=== PATIENT | female | born 1940 | race Caucasian/White ===

== ENCOUNTER 2019-10-20 18:54 | Inpatient (IN) ==
[2019-10-20 20:17] LABS: Basophils # 0.1 10*3/uL (0.0-0.2); Basophils % 0.4 % (0.0-0.8); Eosinophils # 0.1 10*3/uL (0.0-0.87); Eosinophils % 0.4 % (0.00-10.9); Hematocrit 38.5 VOL% (35.7-47.0); Hemoglobin 12.5 GM/DL (12.0-16.0); Immature Granulocytes % 0.4 %; Immature Granulocytes Absolute 0.06 #; Lymphocytes # 0.9 10*3/uL (1.4-4.0); Lymphocytes % 6.3 % (21.3-54.2); Mean Corpuscular HGB Conc 32.5 GM/DL (32-36); Mean Corpuscular Volume 97.2 FL (87-102); Mean Platelet Volume 10.1 FL (9.6-12.0); Monocytes % 3.7 % (1.7-12.7); Neutrophils % 88.8 % (38.7-73.9); Platelet Count 387 T/CUMM (130-400); Red Blood Count 3.96 MC/CUMM (3.8-5.5); Red Cell Distribution Width 12.2 % (9.3-17.3); White Blood Count 14.2 T/CUMM (4-12)
[2019-10-20 20:37] LABS: Albumin 3.4 G/DL (3.4-5.0); Bilirubin,Total 0.9 MG/DL (0.2-1.0); Osmolality,Calculated 280.5 MOS/KG (273-304); Total Protein 7.9 G/DL (6.4-8.3)
[2019-10-20 20:38] LABS: Apearance,Urine CLEAR (Clear); Bilirubin,Urine Negative (Negative); Blood, Urine Negative (Negative); Glucose,Urine (UA) Negative (Negative); Ketones,Urine 20 mg/dL (Negative); Mucus,Urine Occasional /LPF (Occasional); Nitrite,Urine Negative (Negative); Protein,Urine 30 MG/DL; RBC,Urine 2 /HPF (0-4); Squamous Epithelial Cell,Urine Occasional /HPF (0-10); Urine Color Yellow (Yellow); Urine Urobilinogen < 2.0 EU/DL (0.2-1.0); WBC,Urine 1 /HPF (0-6)
[2019-10-20] MEDS ORDERED: PIPERACILLIN/TAZOBACTAM 3,375 MG in SODIUM CHLORIDE 0.9% 100 ML IV STA ×2 (21:17→21:40)
[2019-10-20] MEDS: LACTATED RINGERS 1,000 ML IV SCH (21:49)
[2019-10-20] MEDS ORDERED: ALBUMIN 5% 12.5 GM/250 ML VIAL IV ONE (23:08)
[2019-10-20] MEDS ORDERED: ACETAMINOPHEN 325 MG TABLET PO PRN (23:39)
[2019-10-20] MEDS ORDERED: ONDANSETRON 4 MG/2 ML VIAL IV PRN ×2 (23:39)
[2019-10-21] MEDS: LACTATED RINGERS 1,000 ML IV SCH ×5 (00:05→18:27)
[2019-10-21 00:07] LABS: Apearance,Urine CLEAR (Clear); Bacteria,Urine Occasional /HPF (Few); Bilirubin,Urine Negative (Negative); Blood, Urine Negative (Negative); Glucose,Urine (UA) Negative (Negative); Hyaline Casts,Urine 13 /LPF (0-3); Ketones,Urine 5 mg/dL (Negative); Mucus,Urine Occasional /LPF (Occasional); Nitrite,Urine Negative (Negative); Protein,Urine 30 MG/DL; RBC,Urine 4 /HPF (0-4); Squamous Epithelial Cell,Urine Occasional /HPF (0-10); Urine Color Yellow (Yellow); Urine Specific Gravity > 1.060 (1.001-1.035); Urine Urobilinogen < 2.0 EU/DL (0.2-1.0); WBC,Urine 1 /HPF (0-6)
[2019-10-21] MEDS: MORPHINE 4 MG/1 ML VIAL IV PRN ×3 (00:08→07:59)
[2019-10-21] MEDS ORDERED: fentaNYL 100 MCG/2 ML VIAL ONE (00:09)
[2019-10-21] MEDS ORDERED: LIDOCAINE 2% 5 ML VIAL ONE (00:09)
[2019-10-21] MEDS ORDERED: ALBUMIN 5% 12.5 GM/250 ML VIAL IV ONE (00:09)
[2019-10-21] MEDS ORDERED: PROPOFOL 200 MG/20 ML VIAL IV ONE (00:09)
[2019-10-21] MEDS ORDERED: SUCCINYLCHOLINE 200 MG/10 ML VIAL ONE (00:10)
[2019-10-21] MEDS ORDERED: ROCURONIUM 100 MG/10 ML VIAL IV ONE (00:10)
[2019-10-21] MEDS ORDERED: ONDANSETRON 4 MG/2 ML VIAL ONE (00:10)
[2019-10-21] MEDS ORDERED: PHENYLEPHRINE 1 MG/10 ML SYRINGE IV ONE (00:10)
[2019-10-21] MEDS ORDERED: ESMOLOL 100 MG/10 ML VIAL IV ONE (00:10)
[2019-10-21] MEDS ORDERED: MIDAZOLAM 2 MG/2 ML VIAL ONE (00:10)
[2019-10-21] MEDS ORDERED: GLYCOPYRROLATE 0.4 MG/2 ML VIAL ONE (00:11)
[2019-10-21] MEDS ORDERED: SEVOFLURANE 1 UNIT/15 MINUTE INH ONE (00:11)
[2019-10-21] MEDS ORDERED: NEOSTIGMINE 10 MG/10 ML VIAL ONE (00:11)
[2019-10-21] MEDS ORDERED: SODIUM CHLORIDE 0.9% 1,000 ML IV ONE (00:11)
[2019-10-21] MEDS ORDERED: HYDROmorphone 2 MG/1 ML VIAL IV PRN (01:59)
[2019-10-21] MEDS ORDERED: METOPROLOL TARTRATE 5 MG/5 ML VIAL IV ONE (03:16)
[2019-10-21 04:47] LABS: Basophils # 0.1 10*3/uL (0.0-0.2); Basophils % 0.3 % (0.0-0.8); Hematocrit 40.2 VOL% (35.7-47.0); Hemoglobin 12.4 GM/DL (12.0-16.0); Immature Granulocytes % 0.6 %; Immature Granulocytes Absolute 0.16 #; Lymphocytes # 1.8 10*3/uL (1.4-4.0); Mean Corpuscular HGB Conc 30.8 GM/DL (32-36); Mean Corpuscular Volume 101.3 FL (87-102); Mean Platelet Volume 10.9 FL (9.6-12.0); Monocytes % 3.7 % (1.7-12.7); Neutrophils % 88.4 % (38.7-73.9); Platelet Count 490 T/CUMM (130-400); Red Blood Count 3.97 MC/CUMM (3.8-5.5); Red Cell Distribution Width 12.5 % (9.3-17.3); White Blood Count 26.2 T/CUMM (4-12)
[2019-10-21 04:58] LABS: Calcium 8.3 MG/DL (8.5-10.1); Osmolality,Calculated 283.4 MOS/KG (273-304)
[2019-10-21 05:13] LABS: Anisocytosis 1+; Band Neutrophils 17 % (0-10); Lymphocytes 8 % (20-55); Macrocytosis 1+; Metamyelocytes 1 %; Platelet Estimate Increased; Segmented Neutrophils 71 % (50-85); Total Cells Counted 100
[2019-10-21] MEDS: PIPERACILLIN/TAZOBACTAM 3,375 MG in SODIUM CHLORIDE 0.9% 100 ML IV SCH ×3 (05:52→20:55)
[2019-10-21] MEDS ORDERED: METOPROLOL TARTRATE 5 MG/5 ML VIAL IV PRN (06:00)
[2019-10-21 06:21] LABS: ABG Base Excess -9.5 MMOL/L (-2.5-2.5); ABG HCO3 16.9 MMOL/L (20-26); ABG Oxygen Saturation 96.4 % (95-100); ABG TCO2 20.4 MMOL/L (23-27); Allen Test Positive; Pt O2 Delivery Device Venturi Mask
[2019-10-21 06:26] LABS: ABG PCO2 69.5 MM HG (35-48); ABG PH 7.105 (7.35-7.45)
[2019-10-21] MEDS ORDERED: NALOXONE 0.4 MG/ML VIAL IV ONE (06:28)
[2019-10-21] MEDS ORDERED: NALOXONE 0.4 MG/ML VIAL ONE (06:30)
[2019-10-21] MEDS ORDERED: PANTOPRAZOLE 40 MG TABLET PO SCH (09:00)
[2019-10-21] MEDS: PANTOPRAZOLE 40 MG VIAL IV SCH (09:44)
[2019-10-21] MEDS: ALBUTEROL 1.25 MG/3 ML NEB RESP TX SCH ×2 (13:06→20:00)
[2019-10-21] MEDS ORDERED: LACTATED RINGERS 1,000 ML IV ONE ×2 (14:47→22:28)
[2019-10-21] MEDS ORDERED: ALBUMIN 25% 12.5 GM in PREMIX 1 EACH IV ONE (14:48)
[2019-10-21 15:25] LABS: Basophils % 0.2 % (0.0-0.8); Hematocrit 37.5 VOL% (35.7-47.0); Hemoglobin 11.4 GM/DL (12.0-16.0); Immature Granulocytes % 0.6 %; Immature Granulocytes Absolute 0.14 #; Lymphocytes # 1.1 10*3/uL (1.4-4.0); Lymphocytes % 4.8 % (21.3-54.2); Mean Corpuscular HGB Conc 30.4 GM/DL (32-36); Mean Corpuscular Volume 102.5 FL (87-102); Mean Platelet Volume 9.9 FL (9.6-12.0); Monocytes % 5.4 % (1.7-12.7); Platelet Count 407 T/CUMM (130-400); Red Blood Count 3.66 MC/CUMM (3.8-5.5); Red Cell Distribution Width 12.9 % (9.3-17.3); White Blood Count 22.8 T/CUMM (4-12)
[2019-10-21] MEDS ORDERED: ALBUMIN 25% 25 GM in PREMIX 1 EACH IV ONE (16:30)
[2019-10-21 16:58] LABS: Lymphocytes 6 % (20-55); Segmented Neutrophils 90 % (50-85)
[2019-10-21 16:59] LABS: Macrocytosis Slight; Platelet Estimate Increased; Poikilocytosis Slight
[2019-10-21 17:00] LABS: Total Cells Counted 100
[2019-10-22] MEDS: ALBUTEROL 1.25 MG/3 ML NEB RESP TX SCH ×4 (00:08→20:07)
[2019-10-22] MEDS: MORPHINE 4 MG/1 ML VIAL IV PRN ×3 (00:33→19:45)
[2019-10-22] MEDS: LACTATED RINGERS 1,000 ML IV SCH ×5 (00:41→23:15)
[2019-10-22] MEDS ORDERED: ALBUMIN 5% 25 GM in PREMIX 1 EACH IV ONE (00:48)
[2019-10-22 04:45] LABS: Basophils % 0.2 % (0.0-0.8); Eosinophils % 0.2 % (0.00-10.9); Hematocrit 32.3 VOL% (35.7-47.0); Hemoglobin 9.9 GM/DL (12.0-16.0); Immature Granulocytes % 0.7 %; Immature Granulocytes Absolute 0.12 #; Lymphocytes # 1.3 10*3/uL (1.4-4.0); Lymphocytes % 7.4 % (21.3-54.2); Mean Corpuscular HGB Conc 30.7 GM/DL (32-36); Mean Corpuscular Volume 100.9 FL (87-102); Mean Platelet Volume 10.6 FL (9.6-12.0); Monocytes % 6.1 % (1.7-12.7); NRBC # 0.02 10*3/uL; Neutrophils % 85.4 % (38.7-73.9); Platelet Count 353 T/CUMM (130-400); Red Cell Distribution Width 13.1 % (9.3-17.3); White Blood Count 18.1 T/CUMM (4-12)
[2019-10-22 04:59] LABS: Calcium 8.3 MG/DL (8.5-10.1); Osmolality,Calculated 285.3 MOS/KG (273-304)
[2019-10-22] MEDS: PIPERACILLIN/TAZOBACTAM 3,375 MG in SODIUM CHLORIDE 0.9% 100 ML IV SCH ×3 (05:32→20:00)
[2019-10-22] MEDS ORDERED: MAGNESIUM SULF RIDER 4 GM in PREMIX 1 EACH IV PRN (07:56)
[2019-10-22] MEDS ORDERED: MAGNESIUM SULF RIDER 2 GM in PREMIX 1 EACH IV PRN (07:56)
[2019-10-22] MEDS: METOPROLOL TARTRATE 5 MG/5 ML VIAL IV SCH ×3 (08:53→13:56)
[2019-10-22] MEDS: PANTOPRAZOLE 40 MG VIAL IV SCH (08:55)
[2019-10-22] MEDS: hydrALAZINE 20 MG/1 ML VIAL IV PRN ×2 (12:22→18:36)
[2019-10-22] MEDS ORDERED: METOPROLOL TARTRATE 5 MG/5 ML VIAL IV PRN (14:15)
[2019-10-22] MEDS ORDERED: FUROSEMIDE 20 MG TABLET NG PRN (14:18)
[2019-10-22] MEDS: METOPROLOL TARTRATE 25 MG TABLET PO SCH ×2 (14:55→20:00)
[2019-10-22] MEDS: ASCORBIC ACID 500 MG TABLET NG SCH ×2 (15:02→20:00)
[2019-10-22] MEDS: MONTELUKAST 10 MG TABLET NG SCH (15:02)
[2019-10-23] MEDS: ALBUTEROL 1.25 MG/3 ML NEB RESP TX SCH ×4 (00:31→19:30)
[2019-10-23] MEDS: LACTATED RINGERS 1,000 ML IV SCH ×3 (05:08→21:21)
[2019-10-23] MEDS: PIPERACILLIN/TAZOBACTAM 3,375 MG in SODIUM CHLORIDE 0.9% 100 ML IV SCH ×3 (05:09→21:14)
[2019-10-23 05:25] LABS: Basophils # 0.1 10*3/uL (0.0-0.2); Basophils % 0.4 % (0.0-0.8); Eosinophils # 0.2 10*3/uL (0.0-0.87); Eosinophils % 0.8 % (0.00-10.9); Hematocrit 32.9 VOL% (35.7-47.0); Hemoglobin 10.1 GM/DL (12.0-16.0); Immature Granulocytes % 1.1 %; Immature Granulocytes Absolute 0.19 #; Lymphocytes # 1.3 10*3/uL (1.4-4.0); Lymphocytes % 7.4 % (21.3-54.2); Mean Corpuscular HGB Conc 30.7 GM/DL (32-36); Mean Corpuscular Volume 99.7 FL (87-102); Monocytes % 4.5 % (1.7-12.7); NRBC # 0.05 10*3/uL; Neutrophils % 85.8 % (38.7-73.9); Platelet Count 375 T/CUMM (130-400); Red Cell Distribution Width 12.9 % (9.3-17.3); White Blood Count 17.8 T/CUMM (4-12)
[2019-10-23] MEDS: hydrALAZINE 20 MG/1 ML VIAL IV PRN ×2 (05:33→17:35)
[2019-10-23 05:43] LABS: Calcium 8.7 MG/DL (8.5-10.1); Osmolality,Calculated 284.3 MOS/KG (273-304)
[2019-10-23] MEDS: MORPHINE 4 MG/1 ML VIAL IV PRN ×2 (06:40→23:17)
[2019-10-23] MEDS: PANTOPRAZOLE 40 MG VIAL IV SCH (08:48)
[2019-10-23] MEDS: METOPROLOL TARTRATE 25 MG TABLET PO SCH (08:48)
[2019-10-23] MEDS ORDERED: traMADol 50 MG TABLET PO PRN (08:48)
[2019-10-23] MEDS: ASCORBIC ACID 500 MG TABLET NG SCH ×2 (08:48→21:15)
[2019-10-23] MEDS: GABAPENTIN 100 MG CAPSULE PO SCH ×2 (09:40→09:46)
[2019-10-23] MEDS: ESCITALOPRAM 10 MG TABLET PO SCH (09:40)
[2019-10-23] MEDS: METOPROLOL TARTRATE 50 MG TABLET PO SCH ×2 (09:40→21:15)
[2019-10-23] MEDS: MONTELUKAST 10 MG TABLET NG SCH (09:40)
[2019-10-24] MEDS: ALBUTEROL 1.25 MG/3 ML NEB RESP TX SCH ×4 (00:58→19:23)
[2019-10-24] MEDS: hydrALAZINE 20 MG/1 ML VIAL IV PRN ×2 (03:12→20:47)
[2019-10-24 04:19] LABS: Basophils # 0.1 10*3/uL (0.0-0.2); Basophils % 0.6 % (0.0-0.8); Eosinophils # 0.3 10*3/uL (0.0-0.87); Eosinophils % 1.8 % (0.00-10.9); Hematocrit 32.6 VOL% (35.7-47.0); Hemoglobin 10.3 GM/DL (12.0-16.0); Immature Granulocytes % 1.8 %; Immature Granulocytes Absolute 0.26 #; Lymphocytes # 1.6 10*3/uL (1.4-4.0); Lymphocytes % 11.1 % (21.3-54.2); Mean Corpuscular HGB Conc 31.6 GM/DL (32-36); Mean Corpuscular Volume 98.2 FL (87-102); Mean Platelet Volume 9.8 FL (9.6-12.0); Monocytes % 5.8 % (1.7-12.7); NRBC # 0.09 10*3/uL; Neutrophils % 78.9 % (38.7-73.9); Platelet Count 387 T/CUMM (130-400); Red Blood Count 3.32 MC/CUMM (3.8-5.5); White Blood Count 14.4 T/CUMM (4-12)
[2019-10-24 04:41] LABS: Calcium 8.5 MG/DL (8.5-10.1); Osmolality,Calculated 284.1 MOS/KG (273-304)
[2019-10-24] MEDS: LACTATED RINGERS 1,000 ML IV SCH (05:11)
[2019-10-24] MEDS: PIPERACILLIN/TAZOBACTAM 3,375 MG in SODIUM CHLORIDE 0.9% 100 ML IV SCH ×3 (05:44→20:46)
[2019-10-24] MEDS ORDERED: ENOXAPARIN 40 MG/0.4 ML SYRINGE SUBCUT SCH (09:00)
[2019-10-24] MEDS: METOPROLOL TARTRATE 50 MG TABLET PO SCH ×2 (09:04→20:46)
[2019-10-24] MEDS: PANTOPRAZOLE 40 MG VIAL IV SCH (09:04)
[2019-10-24] MEDS: MONTELUKAST 10 MG TABLET NG SCH (09:04)
[2019-10-24] MEDS: ESCITALOPRAM 10 MG TABLET PO SCH (09:04)
[2019-10-24] MEDS: APIXABAN 2.5 MG TABLET PO SCH ×2 (09:04→20:46)
[2019-10-24] MEDS: GABAPENTIN 100 MG CAPSULE PO SCH (09:04)
[2019-10-24] MEDS: ASCORBIC ACID 500 MG TABLET NG SCH ×2 (09:07→20:46)
[2019-10-24] MEDS: POTASSIUM CHLORIDE 20 MEQ TABLET PO PRN ×3 (10:20→12:54)
[2019-10-24] MEDS: DILTIAZEM 30 MG TABLET PO SCH ×4 (11:11→20:46)
[2019-10-25] MEDS: ALBUTEROL 1.25 MG/3 ML NEB RESP TX SCH ×4 (00:57→19:44)
[2019-10-25] MEDS: MORPHINE 4 MG/1 ML VIAL IV PRN (01:03)
[2019-10-25] MEDS: hydrALAZINE 20 MG/1 ML VIAL IV PRN (03:11)
[2019-10-25] MEDS: PIPERACILLIN/TAZOBACTAM 3,375 MG in SODIUM CHLORIDE 0.9% 100 ML IV SCH ×3 (05:32→23:25)
[2019-10-25 06:17] LABS: Basophils # 0.1 10*3/uL (0.0-0.2); Basophils % 0.7 % (0.0-0.8); Eosinophils # 0.3 10*3/uL (0.0-0.87); Eosinophils % 2.4 % (0.00-10.9); Hematocrit 33.4 VOL% (35.7-47.0); Hemoglobin 10.6 GM/DL (12.0-16.0); Immature Granulocytes % 3.1 %; Lymphocytes # 1.8 10*3/uL (1.4-4.0); Lymphocytes % 14.4 % (21.3-54.2); Mean Corpuscular HGB Conc 31.7 GM/DL (32-36); Mean Corpuscular Volume 97.4 FL (87-102); Mean Platelet Volume 10.3 FL (9.6-12.0); Monocytes % 9.3 % (1.7-12.7); NRBC # 0.07 10*3/uL; Neutrophils % 70.1 % (38.7-73.9); Platelet Count 434 T/CUMM (130-400); Red Blood Count 3.43 MC/CUMM (3.8-5.5); White Blood Count 12.7 T/CUMM (4-12)
[2019-10-25 06:43] LABS: Calcium 8.4 MG/DL (8.5-10.1); Osmolality,Calculated 289.7 MOS/KG (273-304)
[2019-10-25] MEDS: POTASSIUM CHLORIDE 20 MEQ TABLET PO PRN (06:56)
[2019-10-25] MEDS: GABAPENTIN 100 MG CAPSULE PO SCH (09:27)
[2019-10-25] MEDS: METOPROLOL TARTRATE 50 MG TABLET PO SCH ×2 (09:27→21:41)
[2019-10-25] MEDS: APIXABAN 2.5 MG TABLET PO SCH ×2 (09:27→21:40)
[2019-10-25] MEDS: ASCORBIC ACID 500 MG TABLET NG SCH ×2 (09:27→21:41)
[2019-10-25] MEDS: ESCITALOPRAM 10 MG TABLET PO SCH (09:27)
[2019-10-25] MEDS: MONTELUKAST 10 MG TABLET NG SCH (09:27)
[2019-10-25] MEDS: PANTOPRAZOLE 40 MG VIAL IV SCH (09:28)
[2019-10-25] MEDS: DILTIAZEM 30 MG TABLET PO SCH ×4 (09:31→21:41)
[2019-10-26] MEDS: ALBUTEROL 1.25 MG/3 ML NEB RESP TX SCH ×4 (00:20→20:17)
[2019-10-26] MEDS: PIPERACILLIN/TAZOBACTAM 3,375 MG in SODIUM CHLORIDE 0.9% 100 ML IV SCH ×3 (08:57→23:30)
[2019-10-26] MEDS: APIXABAN 2.5 MG TABLET PO SCH ×2 (08:58→20:47)
[2019-10-26] MEDS: GABAPENTIN 100 MG CAPSULE PO SCH (08:58)
[2019-10-26] MEDS: MONTELUKAST 10 MG TABLET NG SCH (08:58)
[2019-10-26] MEDS: DILTIAZEM 30 MG TABLET PO SCH ×4 (08:58→23:30)
[2019-10-26] MEDS: METOPROLOL TARTRATE 50 MG TABLET PO SCH ×2 (08:59→20:47)
[2019-10-26] MEDS: ESCITALOPRAM 10 MG TABLET PO SCH (08:59)
[2019-10-26] MEDS: PANTOPRAZOLE 40 MG VIAL IV SCH (08:59)
[2019-10-26] MEDS: ASCORBIC ACID 500 MG TABLET NG SCH ×2 (08:59→20:47)
[2019-10-26] MEDS: PANTOPRAZOLE 40 MG TABLET PO SCH ×2 (09:47→20:47)
[2019-10-26] MEDS: CLARITHROMYCIN 500 MG TABLET PO SCH ×2 (10:10→20:47)
[2019-10-26] MEDS: AMOXICILLIN 500 MG CAPSULE PO SCH ×2 (10:10→20:47)
[2019-10-27] MEDS: ALBUTEROL 1.25 MG/3 ML NEB RESP TX SCH ×4 (01:27→21:16)
[2019-10-27] MEDS: PIPERACILLIN/TAZOBACTAM 3,375 MG in SODIUM CHLORIDE 0.9% 100 ML IV SCH (06:20)
[2019-10-27] MEDS: CLARITHROMYCIN 500 MG TABLET PO SCH ×2 (09:19→20:58)
[2019-10-27] MEDS: AMOXICILLIN 500 MG CAPSULE PO SCH ×2 (09:19→20:58)
[2019-10-27] MEDS: DILTIAZEM 30 MG TABLET PO SCH ×4 (09:20→20:59)
[2019-10-27] MEDS: APIXABAN 2.5 MG TABLET PO SCH ×2 (09:20→20:59)
[2019-10-27] MEDS: ESCITALOPRAM 10 MG TABLET PO SCH (09:21)
[2019-10-27] MEDS: GABAPENTIN 100 MG CAPSULE PO SCH (09:30)
[2019-10-27] MEDS: MONTELUKAST 10 MG TABLET NG SCH (09:30)
[2019-10-27] MEDS: PANTOPRAZOLE 40 MG TABLET PO SCH ×2 (09:30→20:59)
[2019-10-27] MEDS: METOPROLOL TARTRATE 50 MG TABLET PO SCH ×2 (09:30→20:59)
[2019-10-27] MEDS: ASCORBIC ACID 500 MG TABLET NG SCH ×2 (09:35→20:59)
[2019-10-28] MEDS: ALBUTEROL 1.25 MG/3 ML NEB RESP TX SCH ×3 (01:01→13:04)
[2019-10-28] MEDS: AMOXICILLIN 500 MG CAPSULE PO SCH (09:09)
[2019-10-28] MEDS: APIXABAN 2.5 MG TABLET PO SCH (09:10)
[2019-10-28] MEDS: CLARITHROMYCIN 500 MG TABLET PO SCH (09:10)
[2019-10-28] MEDS: DILTIAZEM 30 MG TABLET PO SCH ×2 (09:10→13:53)
[2019-10-28] MEDS: MONTELUKAST 10 MG TABLET NG SCH (09:11)
[2019-10-28] MEDS: PANTOPRAZOLE 40 MG TABLET PO SCH (09:11)
[2019-10-28] MEDS: GABAPENTIN 100 MG CAPSULE PO SCH (09:11)
[2019-10-28] MEDS: ESCITALOPRAM 10 MG TABLET PO SCH (09:12)
[2019-10-28] MEDS: ASCORBIC ACID 500 MG TABLET NG SCH (09:12)
[2019-10-28] MEDS: METOPROLOL TARTRATE 50 MG TABLET PO SCH (09:12)
[2019-10-28 11:34] VITALS: BP 118/66
== END 2019-10-28 15:40 | disposition home health service (06) | DRG 326 ==
LOC: N.ED 18:54 → N.CC 22:10 → N.EDINP 23:39 → N.CC 23:46 → N.3E 10-25 11:28
PROVIDERS: ADMIT Surgery; ATTEND Surgery

== ENCOUNTER 2020-08-17 14:28 | Inpatient (IN) ==
[2020-08-17] MEDS ORDERED: SODIUM CHLORIDE 0.9% 1,000 ML IV STA (14:54)
[2020-08-17 15:22] LABS: Basophils # 0.1 10*3/uL (0.0-0.2); Basophils % 0.4 % (0.0-0.8); Hematocrit 25.2 VOL% (35.7-47.0); Hemoglobin 7.8 GM/DL (12.0-16.0); Immature Granulocytes % 0.9 %; Lymphocytes # 2.1 10*3/uL (1.4-4.0); Mean Corpuscular Volume 103.3 FL (87-102); Monocytes % 7.5 % (1.7-12.7); NRBC # 0.03 10*3/uL; Neutrophils % 81.2 % (38.7-73.9); Platelet Count 295 T/CUMM (130-400); Red Blood Count 2.44 MC/CUMM (3.8-5.5); Red Cell Distribution Width 16.2 % (9.3-17.3); White Blood Count 21.2 T/CUMM (4-12)
[2020-08-17 15:50] LABS: Alanine Aminotransferase 21 U/L (13-56); Alkaline Phosphatase 107 U/L (45-117); Aspartate Amino Transferase 53 U/L (0-37); Bilirubin,Total < 0.39 MG/DL (0.2-1.0); Blood Urea Nitrogen 100 MG/DL (7-18); Calcium 8.4 MG/DL (8.5-10.1); Glucose 140 MG/DL (74-106); Osmolality,Calculated 313.3 MOS/KG (273-304); Total Protein 6.4 G/DL (6.4-8.3)
[2020-08-17 15:52] LABS: Estimated Glom Filtration Rate 0 ML/MIN
[2020-08-17 16:17] LABS: INR 1.2; PT Patient Result 12.7 SECS (9.8-11.9)
[2020-08-17 16:19] LABS: Partial Thromboplastin Time < 20.0 SECS (23.9-33.8)
[2020-08-17] MEDS ORDERED: DEXTROSE 50% 25 GM/50 ML VIAL IV PRN (16:44)
[2020-08-17] MEDS ORDERED: ONDANSETRON 4 MG/2 ML VIAL IV PRN (16:44)
[2020-08-17] MEDS ORDERED: GLUCAGON 1 MG VIAL IM PRN (16:44)
[2020-08-17] MEDS ORDERED: NON-FORMULARY MEDICATION (Fluticasone Furoate-Vilanterol [Breo Ellipta] 100-25 mcg/dose Bl INH PRN (16:50)
[2020-08-17] MEDS ORDERED: ALBUTEROL 2.5 MG/3 ML NEB RESP TX PRN (16:50)
[2020-08-17 17:04] LABS: CKMB % 4.2 %
[2020-08-17 17:11] LABS: % Iron Saturation 3.5 % (18-50); Ferritin 17.5 ng/ml (8-252)
[2020-08-17 17:19] LABS: Folate > 24.0 NG/ML (5.4-24.0); Vitamin B12 1025 PG/ML (211-911)
[2020-08-17 17:37] LABS: Lymphocytes 8 % (20-55); Macrocytosis 1+; Polychromasia 1+; Segmented Neutrophils 81 % (50-85); Total Cells Counted 100
[2020-08-17 17:38] LABS: Microcytosis 1+; Platelet Estimate Adequate
[2020-08-17 21:17] LABS: Hemoglobin 7.4 GM/DL (12.0-16.0)
[2020-08-17 21:30] LABS: CKMB % 3.6 %
[2020-08-17] MEDS: DONEPEZIL 10 MG TABLET PO SCH (21:47)
[2020-08-17] MEDS: SODIUM CHLORIDE 0.9% 1,000 ML IV SCH (21:47)
[2020-08-17] MEDS: PANTOPRAZOLE 40 MG VIAL IV SCH (21:50)
[2020-08-17 22:41] LABS: Hemoglobin 7.4 GM/DL (12.0-16.0)
[2020-08-17] MEDS ORDERED: INFLUENZA VIRUS VACCINE 0.5 ML SYRINGE IM ONE (23:01)
[2020-08-18 05:40] LABS: Basophils # 0.1 10*3/uL (0.0-0.2); Basophils % 0.5 % (0.0-0.8); Eosinophils % 0.1 % (0.00-10.9); Hematocrit 21.3 VOL% (35.7-47.0); Hemoglobin 6.5 GM/DL (12.0-16.0); Immature Granulocytes % 0.8 %; Immature Granulocytes Absolute 0.15 #; Lymphocytes # 2.7 10*3/uL (1.4-4.0); Lymphocytes % 14.8 % (21.3-54.2); Mean Corpuscular HGB Conc 30.5 GM/DL (32-36); Mean Corpuscular Volume 106.5 FL (87-102); NRBC # 0.05 10*3/uL; Neutrophils % 73.8 % (38.7-73.9); Platelet Count 258 T/CUMM (130-400); Red Cell Distribution Width 16.8 % (9.3-17.3); White Blood Count 17.9 T/CUMM (4-12)
[2020-08-18 06:03] LABS: CKMB % 2.6 %
[2020-08-18 06:13] LABS: Albumin 2.6 G/DL (3.4-5.0); Bilirubin,Total 0.5 MG/DL (0.2-1.0); Osmolality,Calculated 306.3 MOS/KG (273-304); Risk Ratio 3.82; Total Protein 5.4 G/DL (6.4-8.3); VLDL CHOLESTEROL 21.6 MG/DL
[2020-08-18] MEDS ORDERED: SODIUM CHLORIDE 0.9% 1,000 ML IV PRN (07:31)
[2020-08-18] MEDS ORDERED: SODIUM POLYSTYRENE SULFATE 15 GM/60 ML BOTTLE PO STA (07:34)
[2020-08-18 07:57] LABS: Free T4 (Free Thyroxine) 0.68 NG/DL (0.76-1.46)
[2020-08-18] MEDS: PANTOPRAZOLE 40 MG VIAL IV SCH ×2 (09:40→21:10)
[2020-08-18] MEDS: ESCITALOPRAM 10 MG TABLET PO SCH (09:40)
[2020-08-18] MEDS: METOPROLOL TARTRATE 100 MG TABLET PO SCH (09:40)
[2020-08-18] MEDS: SODIUM CHLORIDE 0.9% 1,000 ML IV SCH ×2 (10:56→19:44)
[2020-08-18] MEDS: FERROUS SULFATE 325 MG TABLET PO SCH (17:09)
[2020-08-18 20:25] LABS: Bilirubin,Urine Negative (Negative); Blood, Urine Small mg/dL (Negative); Glucose,Urine (UA) Negative (Negative); Ketones,Urine Negative (Negative); Mucus,Urine Occasional /LPF (Occasional); Nitrite,Urine Negative (Negative); Protein,Urine Negative; RBC,Urine 1 /HPF (0-4); Squamous Epithelial Cell,Urine Occasional /HPF (0-10); Urine Appearance CLEAR (Clear); Urine Color Yellow (Yellow); Urine Specific Gravity 1.016 (1.001-1.035); Urine Urobilinogen < 2.0 EU/DL (0.2-1.0); WBC,Urine 2 /HPF (0-6)
[2020-08-18] MEDS: DONEPEZIL 10 MG TABLET PO SCH (21:09)
[2020-08-19 07:01] LABS: Basophils # 0.1 10*3/uL (0.0-0.2); Basophils % 0.8 % (0.0-0.8); Eosinophils # 0.1 10*3/uL (0.0-0.87); Eosinophils % 0.6 % (0.00-10.9); Hematocrit 27.6 VOL% (35.7-47.0); Immature Granulocytes % 0.9 %; Lymphocytes # 2.7 10*3/uL (1.4-4.0); Lymphocytes % 24.3 % (21.3-54.2); Mean Corpuscular HGB Conc 32.2 GM/DL (32-36); Mean Corpuscular Volume 98.6 FL (87-102); Mean Platelet Volume 10.2 FL (9.6-12.0); Monocytes % 9.7 % (1.7-12.7); NRBC # 0.21 10*3/uL; Neutrophils % 63.7 % (38.7-73.9); Platelet Count 218 T/CUMM (130-400); Red Cell Distribution Width 19.1 % (9.3-17.3)
[2020-08-19 07:15] LABS: White Blood Count 11.3 T/CUMM (4-12)
[2020-08-19 07:16] LABS: Hemoglobin 8.9 GM/DL (12.0-16.0)
[2020-08-19] MEDS ORDERED: LACTATED RINGERS 1,000 ML IV SCH (08:00)
[2020-08-19] MEDS: SODIUM CHLORIDE 0.9% 1,000 ML IV SCH ×2 (08:02→21:34)
[2020-08-19 09:04] LABS: Albumin 2.7 G/DL (3.4-5.0); Bilirubin,Total 0.5 MG/DL (0.2-1.0); Calcium 7.6 MG/DL (8.5-10.1); Osmolality,Calculated 301.6 MOS/KG (273-304); Total Protein 5.7 G/DL (6.4-8.3)
[2020-08-19] MEDS: PANTOPRAZOLE 40 MG VIAL IV SCH ×2 (09:17→21:33)
[2020-08-19] MEDS: METOPROLOL TARTRATE 100 MG TABLET PO SCH (12:40)
[2020-08-19] MEDS: FERROUS SULFATE 325 MG TABLET PO SCH ×2 (12:40→17:21)
[2020-08-19] MEDS: ESCITALOPRAM 10 MG TABLET PO SCH (12:40)
[2020-08-19] MEDS: LEVOTHYROXINE 100 MCG VIAL IV SCH (12:56)
[2020-08-19] MEDS: cefTRIAXone 1,000 MG in SYRINGE 1 EACH IV SCH (17:21)
[2020-08-19] MEDS: DONEPEZIL 10 MG TABLET PO SCH (21:33)
[2020-08-20] MEDS: LEVOTHYROXINE 100 MCG VIAL IV SCH (06:11)
[2020-08-20 06:37] LABS: Basophils # 0.1 10*3/uL (0.0-0.2); Basophils % 0.7 % (0.0-0.8); Eosinophils # 0.1 10*3/uL (0.0-0.87); Eosinophils % 1.2 % (0.00-10.9); Hematocrit 27.1 VOL% (35.7-47.0); Hemoglobin 8.5 GM/DL (12.0-16.0); Immature Granulocytes % 0.8 %; Immature Granulocytes Absolute 0.08 #; Lymphocytes # 2.4 10*3/uL (1.4-4.0); Lymphocytes % 23.4 % (21.3-54.2); Mean Corpuscular HGB Conc 31.4 GM/DL (32-36); Mean Corpuscular Volume 100.7 FL (87-102); Mean Platelet Volume 10.7 FL (9.6-12.0); Monocytes % 12.7 % (1.7-12.7); NRBC # 0.15 10*3/uL; Neutrophils % 61.2 % (38.7-73.9); Platelet Count 202 T/CUMM (130-400); Red Blood Count 2.69 MC/CUMM (3.8-5.5); Red Cell Distribution Width 19.1 % (9.3-17.3); White Blood Count 10.2 T/CUMM (4-12)
[2020-08-20 06:57] LABS: Calcium 7.7 MG/DL (8.5-10.1); Osmolality,Calculated 289.8 MOS/KG (273-304)
[2020-08-20] MEDS ORDERED: MAGNESIUM SULF RIDER 2 GM in PREMIX 1 EACH IV PRN (07:15)
[2020-08-20] MEDS ORDERED: MAGNESIUM SULF RIDER 4 GM in PREMIX 1 EACH IV PRN (07:15)
[2020-08-20] MEDS ORDERED: propofoL 200 MG/20 ML VIAL IV ONE (10:00)
[2020-08-20] MEDS ORDERED: LIDOCAINE 2% 5 ML VIAL ONE (10:00)
[2020-08-20] MEDS ORDERED: ETOMIDATE 20 MG/10 ML VIAL IV ONE (10:00)
[2020-08-20] MEDS: ESCITALOPRAM 10 MG TABLET PO SCH (11:00)
[2020-08-20] MEDS: FERROUS SULFATE 325 MG TABLET PO SCH ×2 (11:00→16:48)
[2020-08-20] MEDS: METOPROLOL TARTRATE 100 MG TABLET PO SCH (11:01)
[2020-08-20] MEDS: PANTOPRAZOLE 40 MG VIAL IV SCH ×2 (11:01→21:02)
[2020-08-20] MEDS: POTASSIUM CHLORIDE RIDER 10 MEQ in PREMIX 1 EACH IV PRN ×4 (11:02→15:46)
[2020-08-20] MEDS: ACETAMINOPHEN 325 MG TABLET PO PRN (11:34)
[2020-08-20] MEDS: SODIUM CHLORIDE 0.9% 1,000 ML IV SCH (11:35)
[2020-08-20] MEDS: LACTATED RINGERS 1,000 ML IV SCH (13:01)
[2020-08-20] MEDS: cefTRIAXone 1,000 MG in SYRINGE 1 EACH IV SCH (16:47)
[2020-08-20] MEDS: DONEPEZIL 10 MG TABLET PO SCH (21:02)
[2020-08-21 06:37] LABS: Basophils # 0.1 10*3/uL (0.0-0.2); Basophils % 0.6 % (0.0-0.8); Eosinophils # 0.2 10*3/uL (0.0-0.87); Hematocrit 25.9 VOL% (35.7-47.0); Hemoglobin 8.1 GM/DL (12.0-16.0); Immature Granulocytes % 0.7 %; Immature Granulocytes Absolute 0.06 #; Lymphocytes # 1.8 10*3/uL (1.4-4.0); Lymphocytes % 21.1 % (21.3-54.2); Mean Corpuscular HGB Conc 31.3 GM/DL (32-36); Mean Corpuscular Volume 101.2 FL (87-102); Mean Platelet Volume 10.6 FL (9.6-12.0); Monocytes % 12.2 % (1.7-12.7); NRBC # 0.09 10*3/uL; Neutrophils % 63.4 % (38.7-73.9); Platelet Count 185 T/CUMM (130-400); Red Blood Count 2.56 MC/CUMM (3.8-5.5); Red Cell Distribution Width 19.3 % (9.3-17.3); White Blood Count 8.6 T/CUMM (4-12)
[2020-08-21] MEDS: LEVOTHYROXINE 100 MCG VIAL IV SCH (06:41)
[2020-08-21 06:50] LABS: Calcium 7.3 MG/DL (8.5-10.1)
[2020-08-21] MEDS: LACTATED RINGERS 1,000 ML IV SCH (08:28)
[2020-08-21] MEDS: SODIUM CHLORIDE 0.9% 1,000 ML IV SCH (08:29)
[2020-08-21] MEDS: FERROUS SULFATE 325 MG TABLET PO SCH ×2 (08:30→17:05)
[2020-08-21] MEDS: PANTOPRAZOLE 40 MG VIAL IV SCH ×2 (08:30→20:06)
[2020-08-21] MEDS: METOPROLOL TARTRATE 100 MG TABLET PO SCH (08:30)
[2020-08-21] MEDS: ESCITALOPRAM 10 MG TABLET PO SCH (08:30)
[2020-08-21] MEDS: cefTRIAXone 1,000 MG in SYRINGE 1 EACH IV SCH (17:05)
[2020-08-21] MEDS: DONEPEZIL 10 MG TABLET PO SCH (20:06)
[2020-08-22 05:59] LABS: Basophils # 0.1 10*3/uL (0.0-0.2); Basophils % 0.5 % (0.0-0.8); Eosinophils # 0.1 10*3/uL (0.0-0.87); Eosinophils % 1.1 % (0.00-10.9); Hematocrit 26.3 VOL% (35.7-47.0); Hemoglobin 8.3 GM/DL (12.0-16.0); Immature Granulocytes % 0.8 %; Immature Granulocytes Absolute 0.09 #; Lymphocytes % 18.1 % (21.3-54.2); Mean Corpuscular HGB Conc 31.6 GM/DL (32-36); Mean Corpuscular Volume 101.5 FL (87-102); Mean Platelet Volume 10.3 FL (9.6-12.0); NRBC # 0.06 10*3/uL; Neutrophils % 66.5 % (38.7-73.9); Platelet Count 213 T/CUMM (130-400); Red Blood Count 2.59 MC/CUMM (3.8-5.5); Red Cell Distribution Width 18.9 % (9.3-17.3)
[2020-08-22] MEDS: LEVOTHYROXINE 100 MCG VIAL IV SCH (06:16)
[2020-08-22 07:03] LABS: Albumin 2.4 G/DL (3.4-5.0); Bilirubin,Total 0.4 MG/DL (0.2-1.0); Osmolality,Calculated 280.4 MOS/KG (273-304); Total Protein 5.7 G/DL (6.4-8.3)
[2020-08-22] MEDS: ESCITALOPRAM 10 MG TABLET PO SCH (10:00)
[2020-08-22] MEDS: PANTOPRAZOLE 40 MG VIAL IV SCH ×2 (10:00→21:01)
[2020-08-22] MEDS: FERROUS SULFATE 325 MG TABLET PO SCH ×2 (10:00→17:16)
[2020-08-22] MEDS: METOPROLOL TARTRATE 100 MG TABLET PO SCH (10:00)
[2020-08-22] MEDS: APIXABAN 2.5 MG TABLET PO SCH ×2 (14:17→21:00)
[2020-08-22] MEDS: cefTRIAXone 1,000 MG in SYRINGE 1 EACH IV SCH (17:20)
[2020-08-22] MEDS: MONTELUKAST 10 MG TABLET PO SCH (21:00)
[2020-08-22] MEDS: LACTATED RINGERS 1,000 ML IV SCH (21:00)
[2020-08-22] MEDS: DONEPEZIL 10 MG TABLET PO SCH (21:00)
[2020-08-23 05:41] LABS: Basophils # 0.1 10*3/uL (0.0-0.2); Basophils % 0.7 % (0.0-0.8); Eosinophils # 0.2 10*3/uL (0.0-0.87); Eosinophils % 1.3 % (0.00-10.9); Hemoglobin 8.9 GM/DL (12.0-16.0); Immature Granulocytes % 0.8 %; Lymphocytes # 1.6 10*3/uL (1.4-4.0); Lymphocytes % 13.2 % (21.3-54.2); Mean Corpuscular HGB Conc 31.8 GM/DL (32-36); Mean Corpuscular Volume 99.6 FL (87-102); Mean Platelet Volume 10.7 FL (9.6-12.0); Monocytes % 11.7 % (1.7-12.7); NRBC # 0.03 10*3/uL; Neutrophils % 72.3 % (38.7-73.9); Platelet Count 226 T/CUMM (130-400); Red Blood Count 2.81 MC/CUMM (3.8-5.5); Red Cell Distribution Width 18.8 % (9.3-17.3)
[2020-08-23 05:58] LABS: Calcium 8.3 MG/DL (8.5-10.1); Osmolality,Calculated 280.4 MOS/KG (273-304)
[2020-08-23] MEDS: LEVOTHYROXINE 100 MCG VIAL IV SCH (06:16)
[2020-08-23] MEDS: guaiFENesin/DM ER 600-30 MG TABLET PO PRN (06:18)
[2020-08-23] MEDS: APIXABAN 2.5 MG TABLET PO SCH ×2 (09:20→21:14)
[2020-08-23] MEDS: FERROUS SULFATE 325 MG TABLET PO SCH ×2 (09:20→17:24)
[2020-08-23] MEDS: METOPROLOL TARTRATE 100 MG TABLET PO SCH (09:21)
[2020-08-23] MEDS: MONTELUKAST 10 MG TABLET PO SCH ×2 (09:21→21:14)
[2020-08-23] MEDS: PANTOPRAZOLE 40 MG VIAL IV SCH ×2 (09:21→21:14)
[2020-08-23] MEDS: ESCITALOPRAM 10 MG TABLET PO SCH (09:21)
[2020-08-23] MEDS: cefTRIAXone 1,000 MG in SYRINGE 1 EACH IV SCH (17:24)
[2020-08-23] MEDS: LACTATED RINGERS 1,000 ML IV SCH (17:27)
[2020-08-23] MEDS: DONEPEZIL 10 MG TABLET PO SCH (21:14)
[2020-08-24 05:27] LABS: Basophils # 0.1 10*3/uL (0.0-0.2); Basophils % 0.6 % (0.0-0.8); Eosinophils # 0.1 10*3/uL (0.0-0.87); Eosinophils % 1.1 % (0.00-10.9); Hematocrit 27.5 VOL% (35.7-47.0); Hemoglobin 8.5 GM/DL (12.0-16.0); Immature Granulocytes % 0.7 %; Immature Granulocytes Absolute 0.09 #; Lymphocytes # 2.3 10*3/uL (1.4-4.0); Lymphocytes % 17.4 % (21.3-54.2); Mean Corpuscular HGB Conc 30.9 GM/DL (32-36); Mean Corpuscular Volume 101.5 FL (87-102); Mean Platelet Volume 10.8 FL (9.6-12.0); Monocytes % 12.5 % (1.7-12.7); Neutrophils % 67.7 % (38.7-73.9); Platelet Count 260 T/CUMM (130-400); Red Blood Count 2.71 MC/CUMM (3.8-5.5); Red Cell Distribution Width 18.7 % (9.3-17.3); White Blood Count 13.3 T/CUMM (4-12)
[2020-08-24 05:43] LABS: Calcium 8.4 MG/DL (8.5-10.1); Osmolality,Calculated 283.3 MOS/KG (273-304)
[2020-08-24] MEDS: LEVOTHYROXINE 100 MCG VIAL IV SCH (06:06)
[2020-08-24] MEDS: FERROUS SULFATE 325 MG TABLET PO SCH ×2 (08:59→16:19)
[2020-08-24] MEDS: ESCITALOPRAM 10 MG TABLET PO SCH (08:59)
[2020-08-24] MEDS: METOPROLOL TARTRATE 100 MG TABLET PO SCH (08:59)
[2020-08-24] MEDS: APIXABAN 2.5 MG TABLET PO SCH ×2 (08:59→20:46)
[2020-08-24] MEDS: MONTELUKAST 10 MG TABLET PO SCH ×2 (08:59→20:46)
[2020-08-24] MEDS: PANTOPRAZOLE 40 MG VIAL IV SCH ×2 (09:00→20:46)
[2020-08-24] MEDS: cefTRIAXone 1,000 MG in SYRINGE 1 EACH IV SCH (16:19)
[2020-08-24] MEDS: guaiFENesin/DM ER 600-30 MG TABLET PO PRN (17:07)
[2020-08-24] MEDS: DONEPEZIL 10 MG TABLET PO SCH (20:46)
[2020-08-24] MEDS: ACETAMINOPHEN 325 MG TABLET PO PRN (23:23)
[2020-08-25] MEDS: LEVOTHYROXINE 100 MCG VIAL IV SCH (06:02)
[2020-08-25 07:01] LABS: Basophils # 0.1 10*3/uL (0.0-0.2); Basophils % 0.7 % (0.0-0.8); Eosinophils # 0.2 10*3/uL (0.0-0.87); Eosinophils % 1.4 % (0.00-10.9); Hematocrit 27.1 VOL% (35.7-47.0); Hemoglobin 8.4 GM/DL (12.0-16.0); Immature Granulocytes % 0.6 %; Immature Granulocytes Absolute 0.07 #; Lymphocytes % 16.7 % (21.3-54.2); Mean Platelet Volume 10.8 FL (9.6-12.0); Monocytes % 12.4 % (1.7-12.7); Neutrophils % 68.2 % (38.7-73.9); Platelet Count 264 T/CUMM (130-400); Red Blood Count 2.71 MC/CUMM (3.8-5.5); Red Cell Distribution Width 18.3 % (9.3-17.3); White Blood Count 11.7 T/CUMM (4-12)
[2020-08-25 07:16] LABS: Calcium 8.4 MG/DL (8.5-10.1); Osmolality,Calculated 275.7 MOS/KG (273-304)
[2020-08-25] MEDS: FERROUS SULFATE 325 MG TABLET PO SCH ×2 (09:01→19:22)
[2020-08-25] MEDS: METOPROLOL TARTRATE 100 MG TABLET PO SCH (09:01)
[2020-08-25] MEDS: ESCITALOPRAM 10 MG TABLET PO SCH (09:01)
[2020-08-25] MEDS: PANTOPRAZOLE 40 MG VIAL IV SCH (09:01)
[2020-08-25] MEDS: APIXABAN 2.5 MG TABLET PO SCH ×2 (09:01→20:45)
[2020-08-25] MEDS: MONTELUKAST 10 MG TABLET PO SCH ×2 (09:01→20:45)
[2020-08-25] MEDS: POTASSIUM CHLORIDE RIDER 10 MEQ in PREMIX 1 EACH IV PRN ×2 (10:54→13:59)
[2020-08-25] MEDS: ACETAMINOPHEN 325 MG TABLET PO PRN ×2 (11:51→20:48)
[2020-08-25] MEDS: cefTRIAXone 1,000 MG in SYRINGE 1 EACH IV SCH (15:07)
[2020-08-25] MEDS: PANTOPRAZOLE 40 MG TABLET PO SCH (19:21)
[2020-08-25] MEDS: DONEPEZIL 10 MG TABLET PO SCH (20:44)
[2020-08-26] MEDS: ACETAMINOPHEN 325 MG TABLET PO PRN ×2 (03:56→14:40)
[2020-08-26] MEDS ORDERED: LEVOTHYROXINE 75 MCG TABLET PO SCH (06:30)
[2020-08-26] MEDS: PANTOPRAZOLE 40 MG TABLET PO SCH ×2 (08:28→17:50)
[2020-08-26] MEDS: FERROUS SULFATE 325 MG TABLET PO SCH ×2 (08:28→17:50)
[2020-08-26] MEDS: METOPROLOL TARTRATE 100 MG TABLET PO SCH (08:28)
[2020-08-26] MEDS: MONTELUKAST 10 MG TABLET PO SCH (08:28)
[2020-08-26] MEDS: ESCITALOPRAM 10 MG TABLET PO SCH (08:28)
[2020-08-26] MEDS: APIXABAN 2.5 MG TABLET PO SCH (08:28)
[2020-08-26] MEDS: LACTATED RINGERS 1,000 ML IV SCH ×2 (10:27→10:28)
[2020-08-26] MEDS ORDERED: SKIN HEALING OINT (AQUAPHOR) 50 GM TUBE TOP PRN (14:26)
[2020-08-26] MEDS: cefTRIAXone 1,000 MG in SYRINGE 1 EACH IV SCH (17:52)
[2020-08-26 20:04] VITALS: BP 109/59
== END 2020-08-26 20:06 | disposition swing bed (61) | DRG 871 ==
LOC: EDUNIT# → EDSEX → EDBD → N.ED 14:28 → N.EDINP 16:44 → SUATTDRO 16:44 → N.3E 19:31
PROVIDERS: ADMIT Internal Medicine; ATTEND Internal Medicine